=== PATIENT | female | born 1960 | race Caucasian/White ===

== ENCOUNTER 2016-08-19 05:45 | Day surgery (SDC) | payer BC ==
[~2016-08-19] VITALS: Ht 165.1 cm; Wt 64.0 kg
--- NOTE | ~2016-08-19 | OR ---
PATIENT'S NAME: EARLENE KELLEY [facility] AGE: 56 Y [address] ROOM: [place] [address] LOCATION: [facility] ADMIT DATE: 08/19/2016 OR/Procedure Report DISCHARGE DATE: FAMILY PHYSICIAN: HAMILTON BARROW MD ATTENDING PHYSICIAN: Bird Dennis V SURGEON: Bird Dennis MD WATCH SUPERVISOR: Pily Saini PA-C DATE OF PROCEDURE: 08/19/2016 PREOPERATIVE DIAGNOSES: 1. Right thyroid mass. 2. Right cheek lesion. POSTOPERATIVE DIAGNOSES: 1. Right thyroid mass. 2. Right cheek lesion. OPERATIONS/PROCEDURES: 1. Right thyroid lobectomy/isthmusectomy. 2. Excision of 1.5 cm lesion in right cheek with intermediate closure. 3. Placement EMG monitored endotracheal tube with intraoperative nerve monitoring(one). ANESTHESIA: General endotracheal anesthesia. ESTIMATED BLOOD LOSS: Minimal. COMPLICATIONS: None. DESCRIPTION OF PROCEDURE: The patient was taken to the operating room, laid in supine position with general endotracheal anesthesia with EMG-monitored endotracheal tube. Ground electrodes were placed on right and left shoulder respectively. appears noted be within normal limits. The head was rotated to the right. Shoulder roll was placed. The proposed incision line over the right cheek as well as the anterior neck were infiltrated with 1% lidocaine with epinephrine solution. The face and neck were prepped and draped in usual sterile fashion using Betadine solution. Approximately, 1.5 cm elliptical skin incision performed surrounding the right cheek lesions subcutaneous tissues divided using a #15 blade. Specimen was removed and marked and sent for pathology. Skin edges were undermined using #15 blade. Subcutaneous tissues approximated with interrupted 5-0 Vicryl skin closure performed with interrupted 6-0 Ethilon. Attention was turned to the thyroid. Approximately, 6 cm horizontal thyroid skin incision was then performed using #15 blade, one fingerbreadth above the PATIENT'S NAME: EARLENE KELLEY [facility] AGE: 56 Y [address] ROOM: [place] [address] LOCATION: [facility] ADMIT DATE: 08/19/2016 OR/Procedure Report DISCHARGE DATE: FAMILY PHYSICIAN: HAMILTON BARROW MD ATTENDING PHYSICIAN: Bird Dennis V sternal notch. Subcutaneous tissues were divided. The platysma divided using #15 blade. Subplatysmal flaps elevated superiorly and inferiorly with Bovie electrocautery and secured using 2-0 silk sutures. Strap muscles were divided in the midline using Bovie electrocautery and reflected off to the right. The isthmus divided on the left reflected over the anterior wall of the trachea. Thyroid lobe was reflected medially. Blunt dissection was performed along the lateral aspect of the thyroid lobe. Adventitia was divided using Harmonic scalpel. This followed up to the superior pole. Superior thyroid artery and vein were divided using Harmonic scalpel. Thyroid lobe was reflected medially. Blunt dissection was then performed carried along the inferior lateral aspect, thyroid lobe, recurrent laryngeal nerve was identified and confirmed using the stimulus probe. Inferior thyroid vessels divided using Harmonic scalpel. Inferior parathyroid was reflected off the inferior lobe, left recurrent laryngeal nerve was followed up to the cricothyroid. Richards's ligament was cross clamped using straight hemostat, divided using #15 blade. Specimen was removed and sent for pathology. Richards's ligament was suture ligated using 3-0 silk suture. The superior thyroid vessels were clamped and suture ligated with 2-0 silk suture. Neck was irrigated with copious amounts of bacitracin solution. Hemostasis was adequate. Recurrent laryngeal nerve was stimulated with good of response indicating intact nerve function. The strap muscles approximated in the midline using a running interlocking 3-0 Vicryl suture. Platysma reapproximated with interrupted 3-0 Vicryl. Skin closure performed with 4-0 Monocryl. Steri-Strips and occlusive dressing was applied. 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 The patient tolerated the procedure well and was discharged from the operating room to recovery room in satisfactory condition. MD KAMRYN PETERSON/henrry /[id number] d: 08/19/16 1458 t: 08/26/16 0711, OPERATIVE SUMMARY
[~2016-08-19 05:45] MED LIST: IMITREX100 MG PO; THERA-VITE W/ B1 TAB PO
--- NOTE | 2016-08-19 17:16 | NUR ---
KAMILAH FROM PACU AT 1045. IS ON ROUTINE VITAL SIGNS. UP AMBULATING IN THE [place]ARD[place] AD [place] WITHOUT DIFFICULTY. DRESSING TO NECK C/D/I. STITCHES TO RIGHT SIDE OF CHEEK INTACT WITH NO DRAINAGE NOTED. C/O OF A SORE THROAT BUT HAS NO DIFFICULTY SWALLOWING. HAD 2 TYLENOL #3 AT 1630. HAD 1 DOSE OF MS. PLANS ON HOME IN THE AM. VERY COOPERATIVE WITH CARES.
--- NOTE | 2016-08-20 05:36 | NUR ---
Significant Event: Alert and oriented X3. Vital signs stable. Gauze/tegaderm dressing to anterior neck is CDI. Has incision to R) cheek, intact and no drainge. Up ad elda in room. Voiding without difficulty. Pain controlled with Tylenol #3 and MS x1. IV saline locked. Taking orals. C/o sore throat. Swallowing without difficulty. Follow up: Plans on discharge home this am.
[2016-08-20] MEDS ORDERED: NORCO 5-325 TA1 EACH PO (09:02)
--- NOTE | 2016-08-20 11:57 | NUR ---
Pt discharged to home at 0930 today with spouse. She was up and about room independently. Ate part of breakfast. States throat sore and neck pain about a 2. Pt has dry anterior neck dressing and small incision Rt side face dry and intact. Pt denies migraine headache at this time. Pt has had ice bag to incision area on and off. Pt has had HOB elevated when in bed. Pt verbalizes understanding of home instructions, phyician followup, when to call doctor. Pt discharged to home in stable condition per wheelchair to the front door.
== END 2016-08-20 09:30 | disposition disaster alternative care site (69) ==
LOC: GSDC 05:45 → GMSU 05:45 → G3N 10:09 → GSDC 16:00
PROC: 0GTH0ZZ Resection of Right Thyroid Gland Lobe, Open Approach (ICD-10-PCS; principal; 2016-08-19)
PROC: 0HQ1XZZ Repair Face Skin, External Approach (ICD-10-PCS; 2016-08-19)
PROC: 0HB1XZZ Excision of Face Skin, External Approach (ICD-10-PCS; 2016-08-19)
DX: D34 Benign neoplasm of thyroid gland (principal); D22.39 Melanocytic nevi of other parts of face; E04.9 Nontoxic goiter, unspecified; M79.7 Fibromyalgia; G43.909 Migraine, unspecified, not intractable, without status migrainosus; Z79.899 Other long term (current) drug therapy
CPT/HCPCS: J1100; J2270; J2405; J7030